=== PATIENT | male | born 1990 | race African-American/Black ===

== ENCOUNTER 2019-02-18 01:05 | Emergency (ER) | payer MEDICAID ==
[~2019-02-18] VITALS: Ht 182.9 cm; Wt 83.9 kg
[2019-02-18 01:10] VITALS: BP 135/87
[2019-02-18] MEDS ORDERED: AMOXIL/CLAVULANATE 875/125 MG 1 TAB PO STA (01:39)
[2019-02-18] MEDS ORDERED: HYDROcodone/APAP 5/325 MG 1 TAB TAB PO ONE (01:40)
[2019-02-18] MEDS ORDERED: AMOXIL/CLAVULANATE 875/125 MG 1 TAB ONE (02:12)
[2019-02-18 02:34] VITALS: BP 135/87
== END 2019-02-18 02:41 | disposition home or self-care (01) ==
LOC: MED 01:05
DX: K02.9 Dental caries, unspecified (principal); F17.200 Nicotine dependence, unspecified, uncomplicated; Z86.69 Personal history of other diseases of the nervous system and sense organs; Z79.899 Other long term (current) drug therapy
CPT/HCPCS: 99283; 99285